=== PATIENT | male | born 1940 | race Caucasian/White ===

== ENCOUNTER 2024-02-19 13:05 | Emergency (ER) | payer MEDICARE, SELFPAY ==
[2024-02-19 13:12] VITALS: BP 174/111; PULSE 82; TEMP 37; O2SAT 96; BMI 29.6
--- NOTE | 2024-02-19 13:20 | US_ITS ---
[facility] [place] [id number] Patient Name: SOLEDAD HERNANDEZ MRN: [id number] date: 1940 Sex: M Assigned Patient Location: ER Current Patient [facility]: [facility] Accession/Order Number: [id number] Exam Date: 02/19/2024 13:21 Report Date: 02/19/2024 14:28 At the request of: JUAN BASILIO Procedure: US venous doppler LE LT Ultrasound venous duplex scan left lower extremity CLINICAL: Left calf pain for one week. TECHNIQUE: Barrios-scale, color Doppler and Duplex examination of the left lower extremity was performed with and without provocative maneuvers. FINDINGS: Comparison: None. Sonographic examination of the left lower extremity deep venous system to include the common femoral, superficial femoral and popliteal veins, demonstrates normal compressibility, color-flow, respiratory variation, and augmentation. The origin of the greater saphenous vein demonstrates normal compression, and there is normal color-flow in the proximal profunda femoral vein. There is normal compressibility of the anterior tibial, peroneal, posterior tibial veins. Normal compression of the greater saphenous and small saphenous veins in the left calf. There is mild subcutaneous edema of the left calf. US/US venous doppler LE LT IMPRESSION: 1. No deep venous thrombosis in the left lower extremity. 2. Negative for superficial venous thrombus in the greater saphenous or small saphenous veins in the left calf. 3. Nonspecific mild subcutaneous edema of the left calf. Electronically authenticated by: SMILEY GODWIN Date: 02/19/2024 14:28
--- NOTE | 2024-02-19 13:20 | ED_ITS ---
HPI HPI - Extremity Injury (Lower) General Chief Complaint: Extremity Injury, Lower Stated Complaint: LEFT LEG PAIN Time Seen by Provider: 02/19/24 13:17 Source: patient Mode of arrival: walk-in Limitations: no limitations History of Present Illness HPI Narrative: Patient is an 83-year-old male who presents to the emergency department for left calf pain that has been present for the last week. He denies any mechanism of injury or trauma. He has not had any swelling, redness. He states it is tender to the touch and he is concerned he has a DVT. 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 He is not currently anticoagulated. He has no other focal medical complaints. He denies the need for any pain medication at this time. Related Data Allergies Allergy/AdvReac Type Severity Reaction Status Date / Time No Known Drug Allergies Allergy Verified 02/19/24 13:14 Opioid HPI Opioid Management Most Recent Pain and Opioid Data: No Data to Display Review of Systems ROS Constitutional Denies: fever or chills Ears, nose, mouth, and throat Denies: throat pain or nasal congestion Respiratory Denies: shortness of breath Gastrointestinal Denies: abdominal pain, nausea or vomiting Integumentary/Breast Denies: rash Hematologic/Lymphatic Denies: easy bruising or easy bleeding Exam Narrative Exam Narrative: Gen.: Awake, alert, in no distress Head: Normocephalic, atraumatic ENT: Moist mucous membranes Respiratory: No respiratory distress Extremities: Moves extremities equally, For left lower extremity, left calf is soft and mildly tender in the distal aspect of the posterior calf. No swelling, redness or firmness appreciated. Psych: Normal mood and affect Neuro: No focal neuro deficit Skin: Warm, dry, intact Constitutional Vital Signs, click to edit/add: Last Vital Signs Temp 98.6 F 02/19/24 13:12 Pulse 82 02/19/24 13:12 Resp 16 02/19/24 13:12 BP 174/111 H 02/19/24 13:12 Pulse Ox 96 02/19/24 13:12 O2 Del Method Room Air 02/19/24 13:12 Course Vital Signs Vital signs: Vital Signs Temperature 98.6 F 02/19/24 13:12 Pulse Rate 82 02/19/24 13:12 Respiratory Rate 16 02/19/24 13:12 Blood Pressure 174/111 H 02/19/24 13:12 Pulse Oximetry 96 02/19/24 13:12 Oxygen Delivery Method Room Air 02/19/24 13:12 Temperature 98.6 F 02/19/24 13:12 Pulse Rate 82 02/19/24 13:12 Respiratory Rate 16 02/19/24 13:12 Blood Pressure 174/111 H 02/19/24 13:12 Pulse Oximetry 96 02/19/24 13:12 Oxygen Delivery Method Room Air 02/19/24 13:12 MDM - Extremity Injury (Lower) MDM Narrative Medical decision making narrative: Ultrasound with no evidence of DVT. Patient discharged to elevate the leg and follow-up with PCP. Return to the ER if symptoms change or worsen. Medical Records Attestation: I reviewed the patient's medical records. Imaging Data Venous US: Attestation: I have reviewed the pertinent imaging results. Radiologist's impression: ITS Impressions Venous Doppler Study 02/19/24 13:20 IMPRESSION: 1. No deep venous thrombosis in the left lower extremity. 2. Negative for superficial venous thrombus in the greater saphenous or small saphenous veins in the left calf. 3. Nonspecific mild subcutaneous edema of the left calf. Electronically authenticated by: SMILEY GODWIN Date: 02/19/2024 14:28 Discharge Plan Discharge Stand Alone Forms: Portal Instructions Chief Complaint: Extremity Injury, Lower Clinical Impression: Pain of left calf Patient Disposition: Home, Self-Care Time of Disposition Decision: 14:32 Condition: Good Print Language: Croatian Instructions: Leg Pain (ED) Referrals: Physician,Non-Staff, MD [Primary Care Provider] - 1 week
== END 2024-02-19 14:41 | disposition home or self-care (01) ==
PROVIDERS: Emergency Provider Emergency Medicine
DX: M79.605 Pain in left leg (principal); Z96.652 Presence of left artificial knee joint
CPT/HCPCS: 93971; 99284